=== PATIENT | male | born 1965 | race American Indian/Alaskan Native ===

== ENCOUNTER 2016-10-27 11:07 | Emergency (ER) | payer MEDICARE ==
[2016-10-27 11:29] VITALS: BP 128/67; PULSE 68; RESP 19; TEMP 98; O2SAT 100
--- NOTE | 2016-10-27 12:37 | ED PDOC ---
HPI: Back Time Seen by Provider: 10/27/16 11:34 Chief Complaint (Nursing): Back Pain History Per: Patient Additional Complaint(s): Pt. states on Wednesday he was doing pull ups and once he finished he developed lower back pain which has worsened and now pain radiates down both legs. Has been taking Advil with intermittent relief. Pt. states 10 years ago he was dx with sciatica which resolved after 1 year of physical therapy. Denies blunt trauma, new trauma, incontinence, dysuria, hematuria, abdominal pain. Past Medical History Reviewed: Historical Data, Nursing Documentation, Vital Signs Vital Signs: Last Vital Signs Temp 98.0 F 10/27/16 11:26 Pulse 68 10/27/16 11:26 Resp 19 10/27/16 11:26 BP 128/67 10/27/16 11:26 Pulse Ox 100 10/27/16 11:26 - Family History Family History: States: No Known Family Hx - Home Medications Home Medications: Ambulatory Orders Medication Instructions Recorded Cyclobenzaprine [Cyclobenzaprine 10 mg PO Q8 PRN #30 tab 10/27/16 HCl] Ibuprofen [Motrin Tab] 600 mg PO Q6H PRN 10/27/16 Meloxicam [Mobic] 7.5 mg PO DAILY PRN #30 tab 10/27/16 - Allergies Allergies/Adverse Reactions: Allergies Allergy/AdvReac Type Severity Reaction Status Date / Time No Known Allergies Allergy Verified 10/27/16 11:29 Review of Systems ROS Statement: Except As Marked, All Systems Reviewed And Found Negative Musculoskeletal: Positive for: Back Pain Physical Exam - Physical Exam Appears: Positive for: Well, Non-toxic, No Acute Distress Skin: Positive for: Normal Color, Warm. Negative for: Rash Respiratory: Positive for: CNT, Normal Breath Sounds Gastrointestinal/Abdominal: Positive for: Normal Exam, Soft. Negative for: Tenderness Back: Positive for: Normal Inspection, Muscle Spasm (b/l paralumbar ), Other ( SLR negative b/l). Negative for: L CVA Tenderness, R CVA Tenderness, Vertebral Tenderness Extremity: Positive for: Normal ROM Neurologic/Psych: Positive for: Alert, Oriented - ECG O2 Sat by Pulse Oximetry: 100 - Progress ED Course And Treament: LS spine x-ray ordered. Toradol 15mg IM, flexeril 10mg PO given. LS spine x-ray: no fx. Disposition - Clinical Impression Clinical Impression: Sciatica - Patient ED Disposition Is Patient to be Admitted: No - Disposition Referrals: [facility] [Outside] Disposition: Routine/Home Disposition Time: 12:40 Condition: IMPROVED Prescriptions: Cyclobenzaprine [Cyclobenzaprine HCl] 10 mg PO Q8 PRN #30 tab PRN Reason: Muscle Spasm Meloxicam [Mobic] 7.5 mg PO DAILY PRN #30 tab PRN Reason: Pain, Mild (1-3) Instructions: Sciatica (ED) Forms: [facility] ED School/Work Excuse Print Language: KAZAKH
--- NOTE | 2016-10-27 12:41 | RAD ---
PROCEDURE: Radiographs of the Lumbar Spine. HISTORY: pain COMPARISON: No prior. FINDINGS: BONES: No acute compression fractures. Minor chronic appearing anterior wedge deformities of T12, L1 and L2 segments. DISC SPACES: Mild multilevel degenerative spondylosis most notably affecting the L5-S1 level. There is disc space narrowing endplate eburnation and anterolateral as well as small posterior osteophyte formation. Facets are mildly hypertrophic. Less severe degenerative changes seen at the remaining lumbar levels with minor posterior disc space narrowing and small anterolateral osteophyte formation. OTHER FINDINGS: None. IMPRESSION: No acute fractures. Several chronic appearing anterior wedge deformities as described. . . Mild multilevel degenerative spondylosis.
== END 2016-10-27 13:02 | disposition home or self-care (01) ==
LOC: H.ER 11:07
DX: M54.30 Sciatica, unspecified side (principal)
CPT/HCPCS: 72100; 96372; 99281; J1885